=== PATIENT | female | born 2000 ===

== ENCOUNTER 2022-07-22 14:36 | Observation (INO) ==
[2022-07-22 19:56] LABS: ABS Eosinophils 0.1 10^3/ul (0-0.6); ABS Monocytes 0.6 10^3/ul (0-0.8); ABS Neutrophils 3.9 10^3/ul (1.5-7.7); Hematocrit 42 % (35-47); Lymphocyte % 30.2 %; Mean Corpuscular HGB Conc 34 g/dL (31-36); Mean Corpuscular Hemoglobin 29 pg (27-31); Mean Corpuscular Volume 87 fL (80-97); Mean Platelet Volume 8.1 fL (7.4-10.4); Platelet Count 248 10^3/uL (150-450); Red Blood Count 4.79 10^6 /uL (3.70-4.87); Red Cell Distribution Width 14 % (10-15); White Blood Count 6.5 10^3/uL (3.5-10.8)
[2022-07-22 20:03] LABS: INR 1.06 (0.89-1.11)
[2022-07-22 20:25] LABS: ALT 6 U/L (7-52); AST 11 U/L (13-39); Albumin 4.4 g/dL (3.2-5.2); Albumin/Globulin Ratio 1.5 (1-3); Alkaline Phosphatase 39 U/L (35-149); Anion Gap 10 mmol/L (2-11); Blood Urea Nitrogen 7 mg/dL (6-24); C Reactive Protein 27.86 mg/L (<8.01); CO2 Carbon Dioxide 23 mmol/L (22-32); Chloride 102 mmol/L (101-111); Glucose 85 mg/dL (70-100); Phosphorus 3.6 mg/dL (2.5-5.0); Potassium 3.7 mmol/L (3.5-5.0); Sodium 135 mmol/L (135-145); Total Protein 7.4 g/dL (6.4-8.9); eGFR CKD-EPI 128.1 (>60)
[2022-07-22 20:31] LABS: HCG Pregnancy < 0.60 mIU/mL
[2022-07-22 21:55] LABS: Urine Appearance Clear; Urine Bilirubin Negative (Negative); Urine Blood Trace (Intact) (Negative); Urine Color Yellow; Urine Glucose Negative (Negative); Urine Ketones 2+ (40mg/dL) (Negative); Urine Nitrite Negative (Negative); Urine Protein 2+ (100 mg/dL) (Negative); Urine Urobilinogen 0.2 (Negative) (Negative)
[2022-07-22 22:01] LABS: Urine Bacteria Absent (Absent); Urine Red Blood Cell Trace(0-2/hpf) (Absent); Urine Squamous Epithelial Cell Present (Absent); Urine White Blood Cell Absent (Absent)
[2022-07-22 22:35] LABS: Erythrocyte Sed Rate 13 mm/Hr (0-19)
[2022-07-22] MEDS ORDERED: Vancomycin 1,000 MG in NS 0.9% 250 ml 250 ML IVPB ONE (22:41)
[2022-07-22] MEDS ORDERED: Dexamethasone IV 4 MG/ML VIAL 1 ml VIAL IV SLOW PU ONE (22:41)
[2022-07-22] MEDS ORDERED: NS 0.9% 1000 ml BAG 1,000 ML IV ONE (22:41)
[2022-07-23 04:15] LABS: Activated Partial Thrombo Time 36.4 seconds (26.0-38.0); INR 1.07 (0.89-1.11)
[2022-07-23 05:43] LABS: ABS Lymphocytes 0.4 10^3/ul (1.0-4.8); ABS Neutrophils 3.4 10^3/ul (1.5-7.7); Hematocrit 38 % (35-47); Hemoglobin 12.6 g/dL (12.0-16.0); Mean Corpuscular HGB Conc 34 g/dL (31-36); Mean Corpuscular Hemoglobin 29 pg (27-31); Mean Corpuscular Volume 86 fL (80-97); Platelet Count 223 10^3/uL (150-450); Red Blood Count 4.37 10^6 /uL (3.70-4.87); Red Cell Distribution Width 13 % (10-15); White Blood Count 3.8 10^3/uL (3.5-10.8)
[2022-07-23 06:27] LABS: Albumin 3.8 g/dL (3.2-5.2); Albumin/Globulin Ratio 1.5 (1-3); C Reactive Protein 24.61 mg/L (<8.01); Calcium 8.7 mg/dL (8.6-10.3); Globulin 2.5 g/dL (2-4); Potassium 4.3 mmol/L (3.5-5.0); Total Bilirubin 0.7 mg/dL (0.2-1.0); Total Protein 6.3 g/dL (6.4-8.9); eGFR CKD-EPI 127.6 (>60)
[2022-07-23 10:34] LABS: Urine Benzodiazepine Screen None Detected (None Detect); Urine Cannabinoids Screen None Detected (None Detect); Urine Opiates Screen None Detected (None Detect)
[2022-07-23 14:30] VITALS: BP 108/58
[2022-07-23 15:00] LABS: Hepatitis B Surface Antigen Nonreactive (Nonreactive)
[2022-07-25 15:24] LABS: Complement C3 102 mg/dL (75 - 175)
[2022-07-26 13:43] LABS: C-ANCA Negative (Negative); P-ANCA Negative (Negative)
== END 2022-07-23 13:30 | disposition home or self-care (01) ==
LOC: EDHOLD 14:36 → ED 14:36 → SUATTDRO 23:11 → EDHOLD 07-23 08:50 → MEDTELE 07-23 09:13
PROVIDERS: ADMIT Hospitalist; ATTEND Internal Medicine